=== PATIENT | male | born 1955 | race Caucasian/White ===

== ENCOUNTER 2017-05-01 12:55 | Emergency (ER) | payer OTHER ==
[~2017-05-01] VITALS: Ht 185.4 cm; Wt 65.3 kg
[2017-05-01 14:20] LABS: HEMATOCRIT 44.2 % (38.0-50.0); HEMOGLOBIN 15.5 G/DL (12.5-16.6); MCH 33.5 PG (29.0-34.0); MCHC 35.1 G/DL (30.0-36.0); MCV 95.5 FL (86-99); RBC DIS.WIDTH-CV 12.3 % (11.8-14.6); RBC DIS.WIDTH-SD 43.4 % (39-53); RED BLOOD COUNT 4.63 M/uL (4.00-5.50)
[2017-05-01 14:41] LABS: TROP-I INTERPRETATION NEGATIVE; TROPONIN-I < 0.01 ng/mL (0.0-0.30)
[2017-05-01 14:48] LABS: CHLORIDE 103 MEQ/L (99-109); GFR ESTIMATE (CALCULATED) > 59 mL/min/ (58.99-99999); GLUCOSE 88 mg/dL (70-99); POTASSIUM 4.1 MEQ/L (3.7-5.4); SODIUM 141 MEQ/L (136-147); UREA NITROGEN (BUN) 8 mg/dL (9-23)
[2017-05-01 15:06] LABS: PLAT.SUFFICIENCY ADEQUATE; PLATELET COUNT 320 K/uL (156-360)
[2017-05-01 19:30] VITALS: BP 127/85
== END 2017-05-01 19:30 | disposition home or self-care (01) ==
LOC: EME 12:55
DX: H43.391 Other vitreous opacities, right eye (principal); R07.9 Chest pain, unspecified; I10 Essential (primary) hypertension; G30.9 Alzheimer's disease, unspecified; F02.80 Dementia in other diseases classified elsewhere, unspecified severity, without behavioral disturbance, psychotic disturbance, mood disturbance, and anxiety; F17.200 Nicotine dependence, unspecified, uncomplicated; Z88.0 Allergy status to penicillin
CPT/HCPCS: 71046; 80048; 84484; 85027; 93005; 99281; 99284

== ENCOUNTER 2017-06-05 15:22 | Emergency (ER) | payer OTHER ==
[~2017-06-05] VITALS: Ht 188 cm; Wt 64.7 kg
[2017-06-05 16:26] LABS: HEMATOCRIT 44.3 % (38.0-50.0); HEMOGLOBIN 15.6 G/DL (12.5-16.6); MCH 33.2 PG (29.0-34.0); MCHC 35.2 G/DL (30.0-36.0); MCV 94.3 FL (86-99); RBC DIS.WIDTH-CV 12.4 % (11.8-14.6); RBC DIS.WIDTH-SD 43.6 % (39-53)
[2017-06-05 16:39] LABS: CHLORIDE 101 mEq/L (99-109); POTASSIUM 4.4 mEq/L (3.7-5.4); SODIUM 142 mEq/L (136-147)
[2017-06-05 16:40] LABS: GLUCOSE 158 mg/dL (70-99)
[2017-06-05 16:44] LABS: CREATININE 1.1 mg/dL (0.6-1.3); GFR ESTIMATE (CALCULATED) > 59 mL/min/ (58.99-99999)
[2017-06-05 16:45] LABS: UREA NITROGEN (BUN) 11 mg/dL (9-23)
[2017-06-05 16:51] LABS: TROP-I INTERPRETATION NEGATIVE; TROPONIN-I < 0.01 ng/mL (0.0-0.30)
[2017-06-05 17:21] LABS: PLAT.SUFFICIENCY ADEQUATE; PLATELET COUNT 250 K/uL (156-360)
[2017-06-05 19:51] LABS: TROP-I INTERPRETATION NEGATIVE; TROPONIN-I 0.01 ng/mL (0.0-0.30)
[2017-06-05] MEDS ORDERED: MOTRIN600 MG PO (20:08)
[2017-06-05 20:20] VITALS: BP 134/65
== END 2017-06-05 20:21 | disposition home or self-care (01) ==
LOC: EME 15:22
PROVIDERS: Nurse Practitioner Acute Care
DX: R07.9 Chest pain, unspecified (principal); I10 Essential (primary) hypertension; G30.0 Alzheimer's disease with early onset; F17.200 Nicotine dependence, unspecified, uncomplicated; Z88.0 Allergy status to penicillin
CPT/HCPCS: 71046; 80048; 84484; 85027; 93005; 99281; 99284

== ENCOUNTER 2017-09-18 07:43 | Day surgery (SDC) | payer OTHER ==
[~2017-09-18] VITALS: Ht 185.4 cm; Wt 72.5 kg
[~2017-09-18 07:43] MED LIST: ARICEPT10 MG PO; MOTRIN600 MG PO; NAMENDA10 MG PO; PRINIVIL10 MG PO
[2017-09-18 08:38] VITALS: BP 128/76
[2017-09-18 08:40] LABS: BASOPHIL COUNT 0.1 K/uL (0-0.1); EOSINOPHIL (%) 2.2 % (0-5); EOSINOPHIL COUNT 0.2 K/uL (0-0.3); HEMATOCRIT 46.7 % (38.0-50.0); HEMOGLOBIN 16.2 G/DL (12.5-16.6); IMMATURE GRANULOCYTE (%) 0.3 % (0.0-0.7); LYMPHOCYTE (%) 31.8 % (15-42); LYMPHOCYTE COUNT 2.3 K/uL (1.0-2.8); MCH 32.9 PG (29.0-34.0); MCHC 34.7 G/DL (30.0-36.0); MCV 94.7 FL (86-99); MONOCYTE (%) 7.8 % (3-12); MONOCYTE COUNT 0.6 K/uL (0-0.8); NEUTROPHIL (%) 56.9 % (45-76); NEUTROPHIL COUNT 4.2 K/uL (1.8-6.4); PLATELET COUNT 267 K/uL (156-360); RBC DIS.WIDTH-CV 11.9 % (11.8-14.6); RBC DIS.WIDTH-SD 41.8 % (39-53); RED BLOOD COUNT 4.93 M/uL (4.00-5.50); WHITE BLOOD COUNT 7.3 K/uL (4.1-10.2)
[2017-09-18 08:59] LABS: ALBUMIN 4.9 G/DL (3.2-4.8); ALKALINE PHOSPHATASE 54 IU/L (3-129); ALT (GPT) 11 IU/L (3-49); AST (GOT) 13 IU/L (2-34); CHLORIDE 103 MEQ/L (99-109); CREATININE 1.1 MG/DL (0.6-1.3); GFR ESTIMATE (CALCULATED) > 59 mL/min/ (58.99-99999); GLUCOSE 88 mg/dL (70-99); SODIUM 140 MEQ/L (136-147); TOTAL BILIRUBIN 0.3 MG/DL (0.0-1.0); TOTAL PROTEIN 7.7 G/DL (6.4-8.3); UREA NITROGEN (BUN) 19 mg/dL (9-23)
[2017-09-18 10:50] VITALS: BP 121/57
[2017-09-18 11:58] VITALS: BP 101/62
== END 2017-09-18 12:05 | disposition home or self-care (01) ==
LOC: SDC 07:43
PROVIDERS: Internal Medicine
DX: H43.11 Vitreous hemorrhage, right eye (principal); H33.011 Retinal detachment with single break, right eye; I10 Essential (primary) hypertension; F17.200 Nicotine dependence, unspecified, uncomplicated; Z88.0 Allergy status to penicillin
CPT/HCPCS: 80053; 85025; 93005; J0690; J2405; J3300; J3370